=== PATIENT | female | born 1970 | race Asian ===

== ENCOUNTER 2022-06-08 08:40 | Emergency (ER) | payer BC ==
[~2022-06-08] VITALS: Ht 165.1 cm; Wt 59.0 kg
[2022-06-08 09:06] VITALS: BP_SYST 130
--- NOTE | 2022-06-08 09:10 | NUR ---
Patient to ER bed TENT1 to gown for evaluation. Side rails up.
--- NOTE | 2022-06-08 09:11 | NUR ---
BIB FAMILY WITH C/C OF SORE THROAT OVER THE LAST 2 MONTHS. PT UNABLE TO SEE PMD FOR A LONG TIME SO DECIDED TO COME TO ED. PT REPORTS ITCHY THROAT, NO PAIN, NO DYSPHAGIA. CONDITION STABLE. PT IN TENT DUE TO SYMPTOMS, BUT TESTED NEG WITH HOME ANTIGEN TEST. INFORMED DR. HERCULES.
--- NOTE | 2022-06-08 11:30 | NUR ---
SIMON Roberts at bedside examining patient.
[2022-06-08 11:46] LABS: STREPTOCOCCUS A SCREEN (RAPID) NEGATIVE (NEGATIVE)
[2022-06-08] MEDS ORDERED: HYDR10SY11 PO (12:38)
--- NOTE | 2022-06-08 13:30 | NUR ---
Patient given written and verbal discharge instructions and verbalizes understanding. ER MD discussed with patient the results and treatment provided. Patient in stable condition. ID arm band removed. Rx of ATARAX given. Patient educated on pain management and to follow up with PMD. Pain Scale 0. Opportunity for questions provided and answered. Medication side effect fact sheet provided.
== END 2022-06-08 13:30 | disposition home or self-care (01) ==
LOC: SED 08:40
DX: J04.0 Acute laryngitis (principal); J02.9 Acute pharyngitis, unspecified; Z79.899 Other long term (current) drug therapy; Z20.822 Contact with and (suspected) exposure to COVID-19
CPT/HCPCS: 36415; 70360-TC; 86403; 87081; 99284